=== PATIENT | female | born 1960 | race Caucasian/White ===

== ENCOUNTER 2019-06-10 | Emergency (ER) | payer OTHER ==
[~2019-06-10] MED LIST: FLEXERIL PO; PROTONIX40 M2 PO
[2019-06-10] MEDS ORDERED: TRAMADOL HYDROC50 MG PO (12:31)
== END 2019-06-10 13:07 | disposition home or self-care (01) | DRG 605 ==
DX: S20.212A Contusion of left front wall of thorax, initial encounter (principal); S80.01XA Contusion of right knee, initial encounter; S63.602A Unspecified sprain of left thumb, initial encounter; V59.50XA Passenger in pick-up truck or van injured in collision with unspecified motor vehicles in traffic accident, initial encounter; F17.210 Nicotine dependence, cigarettes, uncomplicated